=== PATIENT | male | born 1975 | race Caucasian/White ===

== ENCOUNTER 2020-01-31 17:14 | Emergency (ER) | payer SELFPAY ==
[~2020-01-31] VITALS: Ht 170.2 cm; Wt 102.1 kg
[~2020-01-31 17:14] MED LIST: AMOX-426 PO; DOCU-144 PO; METR500T PO; PERC10 PO
[2020-01-31 17:15] VITALS: BP_SYST 141
--- NOTE | 2020-01-31 17:15 | NUR ---
Patient triaged and placed in waiting room. VSS and patient appears in no acute distress at this time. Accompanied by SPOUSE, awaiting available bed, and MD notified of need for MSE.
--- NOTE | 2020-01-31 18:03 | NUR ---
DR BARRERA EVALUATING PT IN TRIAGE ROOM
[2020-01-31] MEDS ORDERED: HYDROcodone/ACETAMIN 10-325 MG TAB PO ONE (19:00)
--- NOTE | 2020-01-31 19:33 | NUR ---
Patient to ER bed H1.Re-check Vital sign.
[2020-01-31 20:16] VITALS: BP_SYST 145
--- NOTE | 2020-01-31 20:16 | NUR ---
Patient given written and verbal discharge instructions and verbalizes understanding. ER MD discussed with patient the results and treatment provided. Patient in stable condition. ID arm band removed. Rx of [place] and Ibuprofen given. Patient educated on pain management and to follow up with PMD. Pain Scale 2/10. Opportunity for questions provided and answered. Medication side effect fact sheet provided.
== END 2020-01-31 20:16 | disposition home or self-care (01) ==
LOC: SED 17:14
DX: M25.561 Pain in right knee (principal)
CPT/HCPCS: 73564; 99283